=== PATIENT | male | born 1955 | race Hispanic/Latino ===

== ENCOUNTER 2019-01-06 16:06 | Emergency (ER) | payer MEDICARE ==
[~2019-01-06] VITALS: Ht 170.2 cm; Wt 79.4 kg
--- OUTSIDE RECORDS SUMMARY | 2019-01-06 16:08 | XMS REPORT | Clinical Summary ---
Author Author [facility] Organization [facility] Address Unknown Phone Unavailable Care Team Providers Care Manhole Stripper Name Role Phone Kelvin Phelan MD PCP Allergies No Known Allergies Medications End Date Status Medication Sig Dispensed Refills Start Date Active lisinopril Take 20 mg by 0 (PRINIVIL,ZESTRIL) 20 mg mouth daily. tablet Active rosuvastatin (CRESTOR) 10 Take 10 mg by 0 MG tablet mouth daily. Active AmANTadine (SYMMETREL) Take 100 mg 0 100 mg capsule by mouth 2 (two) times a day. Active aspirin (ECOTRIN) 81 MG Take 81 mg by 0 enteric coated tablet mouth daily. Active doxazosin (CARDURA) 4 MG Take 4 mg by 0 tablet mouth nightly. Active Problems Problem Noted Date Unstable angina pectoris 07/02/2017 Encounters Care Team Description Date Type Specialty Mason Gross MD Enlarged prostate with urinary retention (Primary Dx); Enlarged prostate with urinary obstruction 04/17/2018 Transcribe Access Orders after 01/05/2018 Social History Date Tobacco Use Types Packs/Day Years Used Never Smoker Smokeless Tobacco: Never Used Alcohol Use Drinks/Week oz/Week Comments No Sex Assigned at Date Recorded Not on file Industry Job Start Date Occupation Not on file Not on file Not on file Travel End Travel History Travel Start No recent travel history available. Last Filed Vital Signs Not on file Plan of Treatment Health Maintenance Due Date Last Done Comments COLONOSCOPY SCREENING 2003 SHINGLES VACCINES (#1) 2003 65+ PNEUMOCOCCAL VACCINE 2018 (1 of 2 - PCV13) INFLUENZA VACCINE 01/11/2019 Results Not on fileafter 01/05/2018 Insurance Type Payer Benefit Subscriber ID Effective Phone Address Plan / Dates Group HMO/PPO [facility] xxxxxxxxx 2017- THCARE Present CHOICE/CHO ICE + Advance Directives Patient has advance care planning documents, and code status on file. For more i nformation, please contact: Tung Zavala [address] [place] [address] Date Inactivated Comments Code Status Date Activated 07/03/2017 7:25 PM Full Code 07/02/2017 5:56 PM Code Status decision reached by: Patient
--- OUTSIDE RECORDS SUMMARY | 2019-01-06 16:09 | XMS REPORT ---
Author Author [facility] Address Unknown Phone Unavailable Care Team Providers Care Diamond Sorter Name Role Phone MIKO LOPEZ Unavailable Unavailable Payers Payer Name Policy Type Policy Number Effective Date Expiration Date Problems This patient has no known problems. Allergies, Adverse Reactions, Alerts Allergy Name Allergy Type Status Severity Reaction(s) Onset Date Inactive Date Treating Clinician Comments No Known Allergies DA Active U 2018-04-12 00:00:00 No Known Drug Allergies DA Active U 2002-06-18 00:00:00 Medications This patient has no known medications. Results Test Description Test Time Test Comments Text Results Atomic Results Result Comments MYOCARD IMAGING, MULTI, SPECT 2018-11-21 08:37:00 Dr. Aldrich to read FINAL REPORT PROCEDURE:Stress MYOCARDIAL PERFUSION SCAN with treadmill exercise CPT CODE:52251 CLINICAL INDICATION: chest pain PROTOCOL: 30.0 mCi of Tc-99m sestamibi was injected intravenously during treadmill exercise. The patient exercised for 9 minutes, 1 seconds, to a peak heart rate of 162 beats/minute ( 104 % of MPHR) and maximum blood pressure of 153/74 mm Hg. Other stress and monitoring data are reported separately. Gated SPECT images were obtained after stress injection. FINDINGS: Images obtained after stress injection of tracer show physiological tracer distribution in the LV myocardium. Gated images obtained at rest after stress injection show normal LV wall motion and thickening. QGS LVEF is 62 %. IMPRESSION: 1. Exercise Cardiolite stress test reveals no evidence of scar or ischemia. 2. Normal wall motion with LVEF of 62% Signed: Trikha, Tri MDReport Verified Date/Time: 11/21/2018 08:37:28 Reading Location: [facility] Reading Room ONIN I 2018-11-21 01:26:00 TROPONIN I (AMRIT) (test bjvu=243) < ng/mL 0.00-0.15 Troponin I (TnI) levels must be interpreted in the context of the presenting sym ptoms and the clinical findings. Elevated TnI levels indicate myocardial damage, but are not specific for ischemic heart disease. Elevated TnI levels are seen in patients with other cardiac conditions (including myocarditis and congestive h eart failure), and slight TnI elevations occur in patients with other conditions , including sepsis, renal failure, acidosis, acute neurological disease, and per sistent tachyarrhythmia.TROPONIN [id number] 16:13:00* Test Item Value Reference Range Comments TROPONIN I (AMRIT) (test acod=321) < ng/mL 0.00-0.15 Troponin I (TnI) levels must be interpreted in the context of the presenting sym ptoms and the clinical findings. Elevated TnI levels indicate myocardial damage, but are not specific for ischemic heart disease. Elevated TnI levels are seen in patients with other cardiac conditions (including myocarditis and congestive h eart failure), and slight TnI elevations occur in patients with other conditions , including sepsis, renal failure, acidosis, acute neurological disease, and per sistent tachyarrhythmia.RAD, CHEST, 1 VIEW, NON [id number] 14:51:00Reason for exam:->CHEST PAINShould this be performed at the bedside?->YesFINAL REPORT Exam: Chest radiograph Clinical History: Chest pain Findings: The cardiomediastinal silhouette and lungs are normal. The regional skeleton and soft tissue are unremarkable. There is no evidence of pleural effusion or pneumothorax. Impression: No radiographic evidence of acute cardio pulmonary disease. Signed: Mary Ley MDReport Verified Date/Time: 019 14:51:44 Reading Location: [facility] B1 C013W Consult Reading Room Electronic ally signed by: MARY LEY M.D. on 11/20/2018 02:51 PM TROPONIN [id number] 13:34:00* Test Item Value Reference Range Comments TROPONIN I (BEAKER) (test jsmg=451) 0.01 ng/mL 0.00-0.15 Troponin I (TnI) levels must be interpreted in the context of the presenting sym ptoms and the clinical findings. Elevated TnI levels indicate myocardial damage, but are not specific for ischemic heart disease. Elevated TnI levels are seen in patients with other cardiac conditions (including myocarditis and congestive h eart failure), and slight TnI elevations occur in patients with other conditions , including sepsis, renal failure, acidosis, acute neurological disease, and per sistent tachyarrhythmia.B-TYPE NATRIURETIC FACTOR (BNP)2018-11-20 13:34:00* Test Item Value Reference Range Comments B-TYPE NATRIURETIC PEPTIDE (BEAKER) (test kqfz=376) 15 pg/mL 0-100 [id number] 13:28:00* Test Item Value Reference Range Comments LIPASE (BEAKER) (test pwcu=807) 32 U/L 8-78 BASIC METABOLIC [id number] 13:28:00* Test Item Value Reference Range Comments SODIUM (BEAKER) (test uxxg=308) 136 meq/L 135-148 POTASSIUM (BEAKER) (test olxh=937) 4.0 meq/L 3.5-5.5 CHLORIDE (BEAKER) (test abjc=360) 104 meq/L 98-106 CO2 (BEAKER) (test reoj=679) 22 meq/L 20-31 BLOOD UREA NITROGEN (BEAKER) (test fvbj=030) 16 mg/dL 10-26 CREATININE (BEAKER) (test pvcn=137) 0.91 mg/dL 0.50-1.20 GLUCOSE RANDOM (BEAKER) (test nrxc=536) 210 mg/dL 70-110 CALCIUM (BEAKER) (test qsmv=333) 9.1 mg/dL 8.5-10.5 EGFR (BEAKER) (test ztfc=0164) 84 mL/min/1.73 sq m INSUFFICIENT CLINICAL DATA TO CALCULATE ESTIMATED GFR. HEPATIC FUNCTION [id number] 13:28:00* Test Item Value Reference Range Comments TOTAL PROTEIN (BEAKER) (test bghz=302) 6.8 gm/dL 6.0-8.5 ALBUMIN (BEAKER) (test oxuk=8152) 4.2 g/dL 3.5-5.0 BILIRUBIN TOTAL (BEAKER) (test rjyf=152) 0.5 mg/dL 0.1-1.3 BILIRUBIN DIRECT (BEAKER) (test fvbw=505) 0.2 mg/dL 0.0-0.5 ALKALINE PHOSPHATASE (BEAKER) (test nalu=786) 67 U/L 30-115 AST (SGOT) (BEAKER) (test wgha=558) 15 U/L 5-40 ALT (SGPT) (BEAKER) (test jtne=635) 16 U/L 6-50 PT/[id number] 13:13:00* Test Item Value Reference Range Comments PROTIME (BEAKER) (test kpko=848) 13.6 seconds 11.8-14.4 INR (BEAKER) (test dnsv=845) 1.1 1.2-1.5 PARTIAL THROMBOPLASTIN TIME (BEAKER) (test jwwj=445) 29.5 seconds 23.2-36.1 RECOMMENDED COUMADIN/WARFARIN INR THERAPY RANGESSTANDARD DOSE: 2.0 - 3.0 Inclu maksim: PROPHYLAXIS for venous thrombosis, systemic embolization; TREATMENT for eliza ous thrombosis and/or pulmonary embolus.HIGH RISK: Target INR is 2.5-3.5 for pat ients with mechanical heart valves.CBC W/PLT COUNT & AUTO [id number] 13:08:00* Test Item Value Reference Range Comments WHITE BLOOD CELL COUNT (BEAKER) (test wvab=847) 6.3 K/ L 4.0-10.0 RED BLOOD CELL COUNT (BEAKER) (test ktnf=480) 4.81 M/ L 4.20-5.80 HEMOGLOBIN (BEAKER) (test fwij=759) 14.3 GM/DL 13.0-16.8 HEMATOCRIT (BEAKER) (test mibu=389) 43.1 % 36.0-50.0 MEAN CORPUSCULAR VOLUME (BEAKER) (test thyh=730) 89.6 fL 82.0-99.0 MEAN CORPUSCULAR HEMOGLOBIN (BEAKER) (test zukk=235) 29.7 pg 27.0-33.0 MEAN CORPUSCULAR HEMOGLOBIN CONC (BEAKER) (test bmmw=577) 33.2 GM/DL 32.0-36.0 RED CELL DISTRIBUTION WIDTH (BEAKER) (test uqnn=960) 12.6 % 12.0-15.0 PLATELET COUNT (BEAKER) (test jdex=212) 194 K/CU MM 150-430 MEAN PLATELET VOLUME (BEAKER) (test nvyt=033) 10.5 fL 6.0-11.5 MPV-Approximately 20% positive bias due to method change. NUCLEATED RED BLOOD CELLS (BEAKER) (test gdqn=860) 0 /100 WBC 0-0 NEUTROPHILS RELATIVE PERCENT (BEAKER) (test cupk=127) 67 % LYMPHOCYTES RELATIVE PERCENT (BEAKER) (test nloz=885) 24 % MONOCYTES RELATIVE PERCENT (BEAKER) (test xynm=479) 7 % EOSINOPHILS RELATIVE PERCENT (BEAKER) (test ctvg=147) 1 % BASOPHILS RELATIVE PERCENT (BEAKER) (test vsee=091) 1 % NEUTROPHILS ABSOLUTE COUNT (BEAKER) (test psti=536) 4.20 K/ L 1.80-8.00 LYMPHOCYTES ABSOLUTE COUNT (BEAKER) (test ybfc=558) 1.52 K/ L 1.48-4.50 MONOCYTES ABSOLUTE COUNT (BEAKER) (test igun=809) 0.46 K/ L 0.00-1.30 EOSINOPHILS ABSOLUTE COUNT (BEAKER) (test kepu=457) 0.06 K/ L 0.00-0.50 BASOPHILS ABSOLUTE COUNT (BEAKER) (test lxur=512) 0.03 K/ L 0.00-0.20 IMMATURE GRANULOCYTES-RELATIVE PERCENT (BEAKER) (test ipnk=6500) 0 % 0-0
--- OUTSIDE RECORDS SUMMARY | 2019-01-06 16:09 | XMS REPORT | Clinical Summary ---
Author Author [facility] Address Unknown Phone Unavailable Care Team Providers Care Stock Taker Name Role Phone Pcp, No PCP Unavailable Allergies No Known Allergies Medications End Date Status Medication Sig Dispensed Refills Start Date Active oxybutynin (DITROPAN-XL) Take 10 mg by 0 10 MG 24 hr tablet mouth nightly . Active aspirin 81 MG chewable Take 81 mg by 0 tablet mouth daily. Active tamsulosin (FLOMAX) 0.4 Take 0.4 mg 0 mg Cap 24 hr capsule by mouth daily. Active lisinopril Take 10 mg by 0 (PRINIVIL,ZESTRIL) 10 MG mouth daily. tablet 11/20/2018 Discontinued LISINOPRIL ORAL Take by 0 mouth. 11/20/2018 Discontinued lisinopril Take 10 mg by 0 (PRINIVIL,ZESTRIL) 20 MG mouth daily . tablet Active Problems Problem Noted Date Chest pain, unspecified type 11/20/2018 Essential hypertension 11/20/2018 Hyperlipidemia 11/20/2018 BPH (benign prostatic hyperplasia) 11/20/2018 Encounters Care Team Description Date Type Specialty Ruben Fong MD Jones, Gisele Anjanique, MD Chest pain, unspecified type (Primary Dx); Hypertension, unspecified type 11/20/2018 Emergency Emergency Medicine - 11/21/2018 11/20/2018 Orders Only General Internal Medicine 11/20/2018 Travel after 01/05/2018 Social History Date Tobacco Use Types Packs/Day Years Used Never Smoker Smokeless Tobacco: Never Used Alcohol Use Drinks/Week oz/Week Comments No Alcohol Habits Answer Date Recorded How often do you have a drink containing alcohol? Never 11/20/2018 How many drinks containing alcohol do you have on Not asked a typical day when you are drinking? How often do you have six or more drinks on one Not asked occasion? Sex Assigned at Date Recorded Not on file Industry Job Start Date Occupation Not on file Not on file Not on file Travel End Travel History Travel Start No recent travel history available. Last Filed Vital Signs Time Taken Vital Sign Reading 11/21/2018 10:39 AM CDT Blood Pressure 119/80 11/21/2018 10:39 AM CDT Pulse 88 11/21/2018 10:39 AM CDT Temperature 36.5 C (97.7 F) 11/21/2018 10:39 AM CDT Respiratory Rate 14 11/21/2018 10:39 AM CDT Oxygen Saturation 94% - Inhaled Oxygen - Concentration - Weight - - Height - - Body Mass Index - Plan of Treatment Not on file Procedures Comments Procedure Name Priority Date/Time Associated Diagnosis REPORT OF PROCEDURE - 11/22/2018 ENDOSCOPY SCAN 2:01 PM CDT STRESS-TEST SCANNED 11/22/2018 2:01 PM CDT NM MYOCARDIAL PERFUSION STAT 11/21/2018 SPECT(TREADMILL) 8:23 AM CDT TROPONIN I STAT 11/21/2018 12:34 AM CDT TROPONIN I STAT 11/20/2018 3:34 PM CDT XR CHEST 1 VIEW STAT 11/20/2018 PORTABLE/BEDSIDE 2:13 PM CDT CBC W/PLT COUNT & AUTO STAT 11/20/2018 DIFFERENTIAL 12:56 PM CDT BASIC METABOLIC PANEL (7) STAT 11/20/2018 12:56 PM CDT PT/APTT STAT 11/20/2018 12:56 PM CDT TROPONIN I STAT 11/20/2018 12:56 PM CDT HEPATIC FUNCTION PANEL STAT 11/20/2018 12:56 PM CDT B-TYPE NATRIURETIC FACTOR STAT 11/20/2018 (BNP) 12:56 PM CDT LIPASE STAT 11/20/2018 12:56 PM CDT CBC W/PLT COUNT & AUTO STAT 11/20/2018 DIFFERENTIAL 12:56 PM CDT ECG 12-LEAD STAT 11/20/2018 12:31 PM CDT after 01/05/2018 Results * EKG-SCANNED (11/22/2018 2:01 PM CDT) Narrative Performed At * STRESS-TEST SCANNED (11/22/2018 2:01 PM CDT) Narrative Performed At * NM myocardial perfusion SPECT(Treadmill) (11/21/2018 8:23 AM CDT) Specimen Narrative Performed At FINAL REPORT Why Not Give Back PROCEDURE:Stress MYOCARDIAL PERFUSION SCAN with treadmill exercise CPT CODE:82674 CLINICAL INDICATION: chest pain PROTOCOL: 30.0 mCi of Tc-99m sestamibi was injected intravenously during treadmill exercise. The patient exercised for 9 minutes,1 seconds, to a peak heart rate of [...] wall motion with LVEF of 62% Signed: Tri Aldrich MD Report Verified Date/Time:11/21/2018 08:37:28 Reading Location: [facility] Cardiology Reading Room Procedure Note Interface, External Ris In - 11/21/2018 8:39 AM CDT FINAL REPORT PROCEDURE:Stress MYOCARDIAL PERFUSION SCAN with treadmill exercise CPT CODE:02636 CLINICAL INDICATION: chest pain PROTOCOL: 30.0 mCi [...] wall motion with LVEF of 62% Signed: Tri Aldrich MD Report Verified Date/Time: 11/21/2018 08:37:28 Reading Location: [facility] Reading Room Performing Organization Address City/State/Zipcode Phone Number GE RIS * Troponin I (11/21/2018 12:34 AM CDT) Only the most recent of 3 results within the time period is included. Troponin I <0.01 0.00 - 0.15 ng/mL [facility] Specimen Blood Narrative Performed At Troponin I (TnI) levels must be interpreted in the context of the presenting [facility] symptoms and the clinical findings. Elevated TnI levels indicate myocardial damage, but are not specific for ischemic heart disease. Elevated TnI levels are seen in patients with other cardiac conditions (including myocarditis and congestive heart failure), and slight TnI elevations occur in patients with other conditions, including sepsis, renal failure, acidosis, acute neurological disease, and persistent tachyarrhythmia. Performing Organization Address City/State/[facility] Phone Number [facility] [address] [place] [address] * XR chest 1 view portable / bedside (11/20/2018 2:13 PM CDT) Specimen Narrative Performed At FINAL REPORT GE [email or web address] Exam: Chest radiograph Clinical History: Chest pain Findings: The cardiomediastinal silhouette and lungs are normal. The regional skeleton and soft tissue are unremarkable.There is no evidence of pleural effusion or pneumothorax. Impression: No radiographic evidence of acute cardiopulmonary disease. Signed: Mary Ley MD Report Verified Date/Time:11/20/2018 14:51:44 Reading Location: [facility] B1 C013W Consult Reading Room Procedure Note Interface, External Ris In - 11/20/2018 2:53 PM CDT FINAL REPORT Exam: Chest radiograph Clinical History: Chest pain Findings: The cardiomediastinal silhouette and lungs are normal. The regional skeleton and soft tissue are unremarkable. There is no evidence of pleural effusion or pneumothorax. Impression: No radiographic evidence of acute cardiopulmonary disease. Signed: Mary Ley MD Report Verified Date/Time: 11/20/2018 14:51:44 Reading Location: [address] Consult Reading Room Performing Organization Address [facility] Phone Number GE RIS * PT/aPTT (11/20/2018 12:56 PM CDT) Protime 13.6 11.8 - 14.4 seconds [facility] INR 1.1 (L) 1.2 - 1.5 [facility] PTT 29.5 23.2 - 36.1 seconds [facility] Specimen Blood Narrative Performed At RECOMMENDED COUMADIN/WARFARIN INR THERAPY RANGES [facility] STANDARD DOSE: 2.0 - 3.0 Includes: PROPHYLAXIS for venous thrombosis, systemic embolization; TREATMENT for venous thrombosis and/or pulmonary embolus. HIGH RISK: Target INR is 2.5-3.5 for patients with mechanical heart valves. Performing Organization Address [facility] Phone Number [facility] [address] [place], [place] [address] * CBC with platelet count + automated diff (11/20/2018 12:56 PM CDT) WBC 6.3 4.0 - 10.0 K/L [facility] RBC 4.81 4.20 - 5.80 M/L [facility] Hemoglobin 14.3 13.0 - 16.8 GM/DL [facility] Hematocrit 43.1 36.0 - 50.0 % [facility] MCV 89.6 82.0 - 99.0 fL [facility] MCH 29.7 27.0 - 33.0 pg [facility] MCHC 33.2 32.0 - 36.0 GM/DL [facility] RDW 12.6 12.0 - 15.0 % [facility] Platelets 194 150 - 430 K/CU MM [facility] MPV 10.5Comment: MPV-Approximately 6.0 - 11.5 fL [facility] 20% positive bias due to method change. nRBC 0 0 - 0 /100 WBC [facility] % Neutros 67 % [facility] % Lymphs 24 % [facility] % Monos 7 % [facility] % Eos 1 % [facility] % Baso 1 % [facility] # Neutros 4.20 1.80 - 8.00 K/L [facility] # Lymphs 1.52 1.48 - 4.50 K/L [facility] # Monos 0.46 0.00 - 1.30 K/L [facility] # Eos 0.06 0.00 - 0.50 K/L [facility] # Baso 0.03 0.00 - 0.20 K/L [facility] Immature 0 0 - 0 % [facility] Granulocytes-Relative Specimen Blood Performing Organization Address [facility] Phone Number [facility] [address] [place] [address] * B-type Natriuretic Factor (BNP) (11/20/2018 12:56 PM CDT) BNP 15 0 - 100 pg/mL [facility] Specimen Blood Performing Organization Address [facility] Phone Number [facility] [phone] [place] [address] * Lipase (11/20/2018 12:56 PM CDT) Lipase 32 8 - 78 U/L [facility] Specimen Blood Performing Organization Address [facility] Phone Number [facility] [phone] [place] [address] * Hepatic function panel (11/20/2018 12:56 PM CDT) Protein, Total 6.8 6.0 - 8.5 gm/dL [facility] Albumin 4.2 3.5 - 5.0 g/dL [facility] Total Bilirubin 0.5 0.1 - 1.3 mg/dL [facility] Bilirubin, Direct 0.2 0.0 - 0.5 mg/dL [facility] Alkaline Phosphatase 67 30 - 115 U/L [facility] AST 15 5 - 40 U/L [facility] ALT 16 6 - 50 U/L [facility] Specimen Blood Performing Organization Address [facility] Phone Number [facility] [address] [place] [address] * Basic Metabolic Panel (11/20/2018 12:56 PM CDT) Sodium 136 135 - 148 meq/L [facility] Potassium 4.0 3.5 - 5.5 meq/L [facility] Chloride 104 98 - 106 meq/L [facility] CO2 22 20 - 31 meq/L [facility] BUN 16 10 - 26 mg/dL [facility] Creatinine 0.91 0.50 - 1.20 mg/dL [facility] Glucose 210 (H) 70 - 110 mg/dL [facility] Calcium 9.1 8.5 - 10.5 mg/dL [facility] EGFR 84Comment: INSUFFICIENT mL/min/1.73 sq m [facility] CLINICAL DATA TO CALCULATE ESTIMATED GFR. Specimen Blood Performing Organization Address [facility] Phone Number [facility] [address] [place] [address] * ECG 12 lead (11/20/2018 12:31 PM CDT) Specimen Narrative Performed At Ventricular Rate 77 BPM GE MUSE Atrial Rate 77 BPM P-R Interval 140 ms QRS Duration 92 ms Q-T Interval 382 ms QTC Calculation(Bazett) 432 ms P [place] 78 degrees R [place] 88 degrees T [place] 73 degrees Normal sinus rhythm Normal ECG No previous ECGs available Procedure Note Interface, External Ris In - 11/23/2018 2:14 PM CDT Ventricular Rate 77 BPM Atrial Rate 77 BPM P-R Interval 140 ms QRS Duration 92 ms Q-T Interval 382 ms QTC Calculation(Bazett) 432 ms P [place] 78 degrees R [place] 88 degrees T [place] 73 degrees Normal sinus rhythm Normal ECG No previous ECGs available Performing Organization Address [facility] Phone Number GE MUSE after 01/05/2018 Insurance Payer Benefit Subscriber ID Type Phone Address Plan / Group [facility] xxxxxxxxxxx MEDICARE ADV Advance Directives For more information, please contact: [facility] [address] [place] [address] Date Inactivated Comments Code Status Date Activated 11/21/2018 1:37 PM Full Code 11/20/2018 4:22 PM This code status was determined by: Patient
--- NOTE | 2019-01-06 17:22 | Diagnostic Imaging Report ---
EXAM: Lumbar spine radiographs-3 views INDICATION: Radiating back pain. COMPARISON: None FINDINGS: BONES: Mild stepwise retrolisthesis of L1 on L2, L2 on L3, and L3 on L4. No acute displaced fractures. Vertebral body heights are preserved. DISCS: Mild degenerative disc changes. JOINTS: Mild facet degenerative changes, most pronounced in the lower lumbar spine. SOFT TISSUES: Unremarkable IMPRESSION: No acute lumbar spine radiographic findings. Mild degenerative disc and facet degenerative changes in the lumbar spine. Signed by: Dr. Donya Bowen MD on 01/06/2019 5:18 PM
[2019-01-06] MEDS ORDERED: KETOROLAC TROMETHAMINE 30 MG/ML VIAL IM STA (17:40)
[2019-01-06] MEDS ORDERED: KETOROLAC TROMETHAMINE 60 MG/2 ML VIAL ONE (17:44)
== END 2019-01-06 17:46 | disposition home or self-care (01) ==
LOC: FSED 16:06
DX: M54.16 Radiculopathy, lumbar region (principal); I10 Essential (primary) hypertension; N40.0 Benign prostatic hyperplasia without lower urinary tract symptoms
CPT/HCPCS: 72100; 81003; 99283; J1885 ×2